=== PATIENT | female | born 1980 | race Caucasian/White ===

== ENCOUNTER → 2016-04-30 | Outpatient (CLI) | payer BC ==
[~2016-04-30] MED LIST: GLUCOPHAGE500 MG/TAB PO
== END ==
LOC: MC.RAD 07:38
DX: Z12.31 Encounter for screening mammogram for malignant neoplasm of breast (principal); Z80.3 Family history of malignant neoplasm of breast

== ENCOUNTER → 2017-05-04 | Outpatient (CLI) | payer BC | LOC: MC.RAD 06:52 | DX: Z12.31 Encounter for screening mammogram for malignant neoplasm of breast (principal) ==

== ENCOUNTER → 2017-10-29 | Outpatient (CLI) | payer BC ==
[~2017-10-29] MED LIST changes: +PROVERA5 MG PO
== END ==
LOC: COL.RAD 12:30
DX: K22.8 Other specified diseases of esophagus (principal)
CPT/HCPCS: Q9967

== ENCOUNTER 2017-10-30 08:51 | Day surgery (SDC) | payer BC ==
[~2017-10-30] VITALS: Ht 160 cm; Wt 67.5 kg
[~2017-10-30 08:51] MED LIST changes: -PROVERA5 MG PO
[2017-10-30 09:29] VITALS: BP 119/51; PULSE 82; TEMP 98.6
[2017-10-30] MEDS ORDERED: PROVERA5 MG PO (09:39)
[2017-10-30] MEDS ORDERED: GLUCOPHAGE500 MG/TAB PO (09:39)
[2017-10-30 10:25] VITALS: BP 124/79; PULSE 97; TEMP 98.4
[2017-10-30 10:40] VITALS: BP 116/72; PULSE 77
[2017-10-30 10:55] VITALS: BP 112/72; PULSE 70
[2017-10-30 11:10] VITALS: BP 114/71; PULSE 69
[2017-10-30 11:25] VITALS: BP 109/73; PULSE 73
== END 2017-10-30 11:40 | disposition home or self-care (01) ==
LOC: SDCO 08:51
DX: K22.10 Ulcer of esophagus without bleeding (principal); Z98.51 Tubal ligation status
CPT/HCPCS: J2250; J3010; J7030

== ENCOUNTER → 2018-05-07 | Outpatient (CLI) | payer BC ==
[~2018-05-07] MED LIST changes: +PROVERA5 MG PO
== END ==
LOC: MC.RAD 07:09
DX: Z12.31 Encounter for screening mammogram for malignant neoplasm of breast (principal)

== ENCOUNTER → 2019-06-10 | Outpatient (CLI) | payer BC | LOC: MC.RAD 13:55 | DX: Z12.31 Encounter for screening mammogram for malignant neoplasm of breast (principal) ==

== ENCOUNTER → 2020-08-06 | Outpatient (CLI) | payer BC | LOC: MC.RAD 07:30 | DX: Z12.31 Encounter for screening mammogram for malignant neoplasm of breast (principal); N63.10 Unspecified lump in the right breast, unspecified quadrant; Z80.3 Family history of malignant neoplasm of breast ==

== ENCOUNTER → 2020-08-10 | Outpatient (CLI) | payer BC | LOC: MC.RAD 08:00 | DX: N60.11 Diffuse cystic mastopathy of right breast (principal) ==

== ENCOUNTER → 2021-03-28 | Outpatient (CLI) | payer BC | LOC: MC.RAD 12:45 | DX: N60.01 Solitary cyst of right breast (principal) ==

== ENCOUNTER → 2021-08-27 | Outpatient (CLI) | payer BC | LOC: MC.RAD 08-07 07:45 | DX: Z12.31 Encounter for screening mammogram for malignant neoplasm of breast (principal) ==